=== PATIENT | female | born 1980 | race Two or more races ===

== ENCOUNTER 2017-11-15 05:25 | Emergency (ER) | payer BC, OTHER ==
[~2017-11-15] VITALS: Ht 162.6 cm; Wt 81.6 kg
[~2017-11-15 05:25] MED LIST: METO-295 PO
[2017-11-15] MEDS ORDERED: METOCLOPRAMIDE HCL 10 MG/2 ML VIAL IV ONE (05:45)
[2017-11-15] MEDS ORDERED: ONDANSETRON 4 MG/2 ML VIAL IV ONE (05:45)
[2017-11-15] MEDS ORDERED: FAMOTIDINE. 20 MG/2 ML VIAL IV ONE ×2 (05:45→06:19)
[2017-11-15] MEDS ORDERED: LORAZEPAM 2 MG/1 ML VIAL IV ONE (05:45)
[2017-11-15] MEDS ORDERED: IV NORMAL SALINE 1000 ML BAG IV ONE (05:45)
[2017-11-15] MEDS ORDERED: diphenhydrAMINE 50 MG/1 ML VIAL IV ONE (05:45)
[2017-11-15] MEDS ORDERED: INSU3INS6 SQ (06:01)
[2017-11-15] MEDS ORDERED: DULO20CA PO (06:01)
[2017-11-15] MEDS ORDERED: POLY17PO4 PO (06:01)
[2017-11-15] MEDS ORDERED: SUCR1TAB PO (06:01)
[2017-11-15] MEDS ORDERED: FAMO-132 PO (06:01)
[2017-11-15] MEDS ORDERED: PANT40TA2 PO (06:01)
[2017-11-15] MEDS ORDERED: GABA-532 PO (06:01)
[2017-11-15] MEDS ORDERED: CLON1TAB4 PO (06:01)
[2017-11-15] MEDS ORDERED: TRAM50TA2 PO (06:01)
[2017-11-15] MEDS ORDERED: DOCU-141 PO (06:01)
[2017-11-15] MEDS ORDERED: LISI-603 PO (06:01)
[2017-11-15] MEDS ORDERED: ONDA4TAB5 PO (06:01)
[2017-11-15] MEDS ORDERED: AMLO5TAB2 PO (06:01)
[2017-11-15 06:07] LABS: BASOPHILS # (AUTO) 0.1 K/uL (0.0-8.0); BASOPHILS % (AUTO) 0.5 % (0.0-2.0); HEMATOCRIT 34.1 % (31.2-41.9); HEMOGLOBIN 11.1 g/dL (10.9-14.3); LYMPHOCYTES # (AUTO) 0.8 K/uL (20.0-40.0); MEAN CORPUSCULAR HEMOGLOBIN 27.5 uug (24.7-32.8); MEAN CORPUSCULAR HGB CONC 33 g/dL (32.3-35.6); MEAN CORPUSCULAR VOLUME 84.1 fL (75.5-95.3); MONOCYTES # (AUTO) 0.3 K/uL (2.0-10.0); MONOCYTES % (AUTO) 2.3 % (0.0-11.0); NEUTROPHILS # (AUTO) 10.4 K/uL (1.8-8.9); NEUTROPHILS % (AUTO) 90.2 % (38.5-71.5); PLATELET COUNT (AUTO) 417 K/uL (179-408); RED BLOOD CELL COUNT(AUTO) 4.05 MIL/uL (3.63-4.92); WHITE BLOOD COUNT (AUTO) 11.5 K/uL (3.8-11.8)
[2017-11-15 06:16] LABS: POTASSIUM 3.5 mmol/L (3.5-5.1)
[2017-11-15] MEDS ORDERED: ONDANSETRON 4 MG/2 ML VIAL ONE (06:19)
[2017-11-15] MEDS ORDERED: METOCLOPRAMIDE HCL 10 MG/2 ML VIAL ONE (06:19)
[2017-11-15] MEDS ORDERED: LORAZEPAM 2 MG/1 ML VIAL ONE (06:20)
[2017-11-15] MEDS ORDERED: diphenhydrAMINE 50 MG/1 ML VIAL ONE (06:21)
[2017-11-15 06:26] LABS: BILIRUBIN,DIRECT 0.1 mg/dL (0.0-0.2); BILIRUBIN,TOTAL 0.4 mg/dL (0.2-1.0); TOTAL PROTEIN, SERUM 8.3 g/dL (6.4-8.2)
--- NOTE | 2017-11-15 06:39 | NUR ---
PT IN BED RESTING QUIETLY. PT NO LONGER ACTIVELY VOMITING. BREATH SOUNDS REGULAR AND UNLABORED.
--- NOTE | 2017-11-15 07:10 | NUR ---
REPORT GIVEN TO GRICELDA DELGADO.
--- NOTE | 2017-11-15 07:49 | NUR ---
PT BACK FROM XRAY, RESTING IN BED W/ BOTH EYES CLOSED, NAD NOTED.
--- NOTE | 2017-11-15 08:10 | NUR ---
Pt is resting comfortably, no N/V noted, no c/o abd pain.
--- NOTE | 2017-11-15 08:32 | NUR ---
IV removed. Catheter intact and site benign. Pressure and 4x4 gauze applied to site. No bleeding noted.
[2017-11-15 08:33] VITALS: BP 143/85
--- NOTE | 2017-11-15 08:39 | NUR ---
Patient discharged to home in stable conditon. Written and verbal after care instructions given. Patient verbalizes understanding of instructions. Pt left ER w/ steady gait accompained by family.
== END 2017-11-15 08:40 | disposition home or self-care (01) ==
LOC: ER 05:28
DX: R10.13 Epigastric pain (principal); E10.43 Type 1 diabetes mellitus with diabetic autonomic (poly)neuropathy; K31.84 Gastroparesis; Z90.49 Acquired absence of other specified parts of digestive tract; Z79.899 Other long term (current) drug therapy
CPT/HCPCS: 36415; 83690; 84703; 85025; A4663; J1200; J2060; J2405; J2765; J3490; J7030